=== PATIENT | female | born 1985 | race Caucasian/White ===

== ENCOUNTER 2017-05-15 06:05 | Inpatient (IN) | payer OTHER ==
[~2017-05-15] VITALS: Ht 162.6 cm; Wt 92.4 kg
[2017-05-15 06:49] VITALS: BP 132/88; PULSE 84; RESP 18
[2017-05-15 06:53] VITALS: Ht 162.6 cm; Wt 92.4 kg
[2017-05-15] MEDS ORDERED: LACTATED RINGER'S 1,000 ML IV PRN (07:00)
[2017-05-15] MEDS ORDERED: LIDOCAINE 1% (MPF) 30 ML INJ INJ PRN (07:00)
[2017-05-15] MEDS ORDERED: AMPICILLIN 2 GM/NS (PMX) 100 ML IV ONE (07:00)
[2017-05-15] MEDS ORDERED: BUTORPHANOL 2 MG INJ IV PRN (07:00)
[2017-05-15] MEDS ORDERED: MISOPROSTOL 200 MCG TAB PR PRN ×2 (07:00→10:00)
[2017-05-15] MEDS ORDERED: CARBOPROST 250 MCG INJ IM PRN ×2 (07:00→10:00)
[2017-05-15] MEDS ORDERED: OXYTOCIN 30 UNITS/LR 500 ML IV PRN ×2 (07:00→10:00)
[2017-05-15] MEDS ORDERED: OXYTOCIN 30 UNITS/LR 500 ML IV SCH ×2 (07:00)
[2017-05-15] MEDS ORDERED: METHYLERGONOVINE 0.2 MG INJ IM PRN ×2 (07:00→10:00)
[2017-05-15] MEDS ORDERED: PREN1TAB79 PO (07:04)
[2017-05-15] MEDS ORDERED: FERR325T5 PO (07:04)
[2017-05-15] MEDS ORDERED: AMPICILLIN 2 GM/NS (PMX) 100 ML ONE (07:11)
[2017-05-15] MEDS: LACTATED RINGER'S 1,000 ML IV SCH ×3 (07:20→18:51)
--- NOTE | 2017-05-15 07:29 | TRIAGE ---
OB Triage Datetime Report Generated by CPN: 05/15/2017 07:29 Datetime: 05/15/2017 06:56 Heart Rate Comments: DIFFICULT TO KEEP PT ON MONITOR, PT MOVING IN BED IN PAIN _ D/T PT'S SIZE Datetime: 05/15/2017 06:51 Stage of : Labor Datetime: 05/15/2017 06:30 Vaginal Exam Dilatation (cms): 6.0 Effacement (%): 90 Station: -2 Exam By: DWIGHT RN Membrane Status: Intact Vaginal Bleeding: Normal Show Cervix, Consistency: Soft Cervix, Position: Midposition Presentation 'A': Cephalic Datetime: 05/15/2017 06:29 EGA: 39.0 Datetime: 05/15/2017 06:27 Labor Evaluation Monitor Mode: Palpation Resting Tone [place]: Relaxed Datetime: 05/15/2017 06:23 Stage of : OB Triage Assessment Type: Triage Maternal Assessment Level of Consciousness: Fully Conscious DTR's/Clonus: DTRs 2+; No Clonus Headache: Denies Blurred Vision: No Respiratory Effort: Unlabored; Regular Rhythm; Equal Expansion Breath Sounds, Left: Clear and Equal Breath Sounds, Right: Clear and Equal Nausea/Vomiting: Denies RUQ Epigastric Pain: Denies Lower Extremities Edema: None Degree: None Upper Extremities Edema: None Degree: None Facial Edema: None Temperature Route: Oral Fall Risk Assessment History of Falling: (0) No Secondary Diagnosis: (0) No Ambulatory Aid: (0) Bedrest/Nurse Assist IV Therapy: (0) No Gait: (0) Normal/Bedrest/Immobile Mental Status: (0) Oriented to Own Ability Fall Score: 0 Fall Risk Score Definition: No Risk: No action required Comment: SEE TRIAGE SUMMARY PT ASYMPTOMATIC NO EPIGASTRIC PAIN, BLURRY VISION, SEEING SPOTS OR DICKEY Pain Assessment Pain Scale: 4 Pain Presence: Intermittent Pain Type: Cramping Pain Location: Back Pain Goal: 8 Pain Relief Measures: Comfort Measures Datetime: 05/15/2017 06:15 Time of Arrival: 05/15/2017 06:15 Arrived By: Ambulatory Arrived From: Home Chief Complaint: 39.0 WKS C/O UC'S SINCE 05/14/17 AT 2300 W/ SCANT [place] VAGINAL BLEEDING. PT STATES SHE HAS BEEN GOING TO NST 2X/WK FOR ELEVATED BP'S DURING . Movement: Present Contractions: Regular Time Contractions Began: 05/14/2017 23:00 Contractions: 5-6 Rupture of Membranes: Denies Vaginal Bleeding: Scant Vaginal Discharge: Present Recent Sexual Intercouse: Yes Abdominal Trauma: Not Applicable Patient Complaints: Contractions; Cramping; Back Pain; Nausea; Other Time Provider Notified: 05/15/2017 06:36 Provider Notified: VARUN Initial Plan: EFDaniel, ALICIA ALVARADO
[2017-05-15 07:38] LABS: ADD UMIC YES; UR ASCORBIC ACID NEGATIVE (NEGATIVE); UR BILIRUBIN (Dip) NEGATIVE (NEGATIVE); UR BLOOD (Dip) 1+ mg/dL (NEGATIVE); UR BUDDING YEAST FEW /HPF (NONE SEEN); UR CLARITY CLOUDY (CLEAR); UR COLOR YELLOW (YELLOW); UR GLUCOSE (Dip) NEGATIVE (NEGATIVE); UR KETONES (Dip) 1+ mg/dL (NEGATIVE); UR LEUKOCYTE ESTERASE (Dip) 2+ Leu/ul (NEGATIVE); UR MUCUS MANY /HPF (NONE SEEN); UR NITRITE (Dip) NEGATIVE (NEGATIVE); UR RBC 27 /HPF (0-5); UR SQUAMOUS EPITHELIAL CELL FEW /HPF (FEW); UR TOTAL PROTEIN (Dip) 1+ mg/dl (NEGATIVE); UR UROBILINOGEN (Dip) NEGATIVE (NEGATIVE)
[2017-05-15 07:39] LABS: BASOPHILS % 0.1 % (0.0-2.0); EOSINOPHILS % 0.2 % (0.0-7.0); HEMATOCRIT 34.9 % (37.0-47.0); HEMOGLOBIN 12.5 g/dl (12.0-16.0); LYMPHOCYTES # 1.1 10^3/ul (0.8-2.9); LYMPHOCYTES % 7.2 % (15.0-51.0); MEAN CORPUSCULAR HEMOGLOBIN 32.6 pg (29.0-33.0); MEAN CORPUSCULAR HGB CONC 35.8 g/dl (32.0-37.0); MEAN CORPUSCULAR VOLUME 91.1 fl (82.0-101.0); MEAN PLATELET VOLUME 12.5 fl (7.4-10.4); MONOCYTE # 0.7 10^3/ul (0.3-0.9); MONOCYTES % 4.7 % (0.0-11.0); NEUTROPHIL # 13.4 10^3/ul (1.6-7.5); PLATELET COUNT 184 10^3/UL (140-415); RED BLOOD COUNT 3.83 10^6/ul (4.20-5.40); RED CELL DISTRIBUTION WIDTH 12.4 % (11.5-14.5); WHITE BLOOD COUNT 15.4 10^3/ul (4.8-10.8)
[2017-05-15 07:56] LABS: INR 0.94; PROTIME 12.6 Sec (12.2-14.2)
[2017-05-15 07:57] LABS: PARTIAL THROMBOPLASTIN TIME 28.4 Sec (25.0-35.0)
[2017-05-15 07:59] LABS: ALBUMIN 3.5 g/dl (3.3-4.9); ALBUMIN/GLOBULIN RATIO 0.94; BILIRUBIN,INDIRECT 0.4 mg/dl (0-1.1); BILIRUBIN,TOTAL 0.4 mg/dl (0.2-1.3); CALCIUM 9.2 mg/dl (8.4-10.2); CREATININE 0.59 mg/dl (0.44-1.00); POTASSIUM 3.5 mmol/L (3.5-5.1); TOTAL PROTEIN 7.2 g/dl (6.1-8.1); URIC ACID 4.7 mg/dl (3.1-7.9)
--- NOTE | 2017-05-15 09:56 | LDN ---
Date/Time of Note Date/Time of Note DATE: 05/15/17 TIME: 09:50 Delivery Summary May 15, 2017 This patient is a 32 years old primigravida at 39 weeks and 1 day with estimated date of confinement of 05/22/2017 was admitted with a slight elevation of blood pressure with rupture membrane 6 cm of dilatation at about 5: 00 in this morning she advanced to complete dilatation and delivered spontaneously a male with score of 9 1 minute 9 in 5 minutes the weight of the baby was 7 pounds and 1 ounces estimated blood loss was 250 cc 2 small sulcus tear was repaired with 3-0 chromic catgut Weeks of Gestation 39 weeks and 1 day Placenta Delivered: Spontaneously Meconium: none Episiotomy: No Laceration repair: Small sulcus tear repaired Anesthesia type: Local Estimated blood loss: 250 Sponge & Needle done & correct: Yes All needle counts correct: Yes Any foreign bodies felt in the: No Problems: Infant Delivery Information Sex Infant Sex: male Apgars 1 Minute: 9 5 Minute: 9 Suctioning Nose & mouth suctioned at prashanth: Yes Delee suction performed: No Umbilical Cord Umbilical cord with: 3 Vessels Cord Blood was obtained: Yes Mother & Baby Disposition Disposition Laboratory Tests Test 05/15/17 06:20 05/15/17 06:55 Urine Color YELLOW Urine Clarity CLOUDY Urine pH 7.0 Urine Specific [place] 1.020 Urine Ketones 1+mg/dL Urine Nitrite NEGATIVEmg/dL Urine Bilirubin NEGATIVEmg/dL Urine Urobilinogen NEGATIVEmg/dL Urine Leukocyte Esterase 2+Clay/ul Urine Microscopic RBC 27/HPF Urine Microscopic WBC 105/HPF Urine Squamous Epithelial Cells FEW/HPF Urine Calcium Oxalate Crystals MODERATE/HPF Urine Mucus MANY/HPF Urine Yeast (Budding) FEW/HPF Urine Hemoglobin 1+mg/dL Urine Glucose NEGATIVEmg/dL Urine Total Protein 1+mg/dl White Blood Count 15.410^3/ul Red Blood Count 3.8310^6/ul Hemoglobin 12.5g/dl Hematocrit 34.9% Mean Corpuscular Volume 91.1fl Mean Corpuscular Hemoglobin 32.6pg Mean Corpuscular Hemoglobin Concent 35.8g/dl Red Cell Distribution Width 12.4% Platelet Count 00449^3/UL Mean Platelet Volume 12.5fl Neutrophils % 87.0% Lymphocytes % 7.2% Monocytes % 4.7% Eosinophils % 0.2% Basophils % 0.1% Nucleated Red Blood Cells % 0.0/100WBC Neutrophils # 13.410^3/ul Lymphocytes # 1.110^3/ul Monocytes # 0.710^3/ul Eosinophils # 0.010^3/ul Basophils # 0.010^3/ul Nucleated Red Blood Cells # 0.010^3/ul Prothrombin Time 12.6Sec Prothrombin Time Ratio 1.0 INR International Normalized Ratio 0.94 Activated Partial Thromboplast Time 28.4Sec Fibrinogen 655.0mg/dl Sodium Level 138mmol/L Potassium Level 3.5mmol/L Chloride Level 105mmol/L Carbon Dioxide Level 18mmol/L Anion Gap 19 Blood Urea Nitrogen 8mg/dl Creatinine 0.59mg/dl Glucose Level 103mg/dl Uric Acid 4.7mg/dl Calcium Level 9.2mg/dl Total Bilirubin 0.4mg/dl Direct Bilirubin 0.00mg/dl Indirect Bilirubin 0.4mg/dl Aspartate Amino Transf (AST/SGOT) 21IU/L Alanine Aminotransferase (ALT/SGPT) 42IU/L Alkaline Phosphatase 177IU/L Total Protein 7.2g/dl Albumin 3.5g/dl Globulin 3.70g/dl Albumin/Globulin Ratio 0.94 Hepatitis B Surface Antigen NEGATIVE Current Medications Medications (Trade) Dose Ordered Sig/Mahnaz Route PRN Reason Start Time Stop Time Status Last Admin Dose Admin Lactated Ringer's 1,000 ml @ 125 mls/hr Q8H IV 05/15/17 06:56 05/15/17 07:20 Ampicillin 100 ml @ 100 mls/hr ONCE ONCE IV 05/15/17 07:00 05/15/17 07:59 DC 05/15/17 07:20 Ampicillin (Ampicillin 1 Gm/ NS (Pmx)) 50 ml @ 100 mls/hr Q4H IV 05/15/17 11:00 Butorphanol Tartrate (Stadol) 2 mg Q2H PRN IV PAIN 05/15/17 07:00 Lidocaine 30 ml 30 ml ONCE PRN INJ EPISIOTOMY/TEARING 05/15/17 07:00 05/15/17 09:23 Oxytocin/Lactated Ringer's 500 ml @ 125 mls/hr ONCE -MAY REPEAT X1 IV 05/15/17 07:00 05/15/17 09:36 Oxytocin/Lactated Ringer's 500 ml @ 125 mls/hr ONCE IV 05/15/17 07:00 Ibuprofen 600 mg 600 mg ONCE PRN PO Mild Pain (Pain Score 1-3) 05/15/17 07:00 Lactated Ringer's 1,000 ml @ 2,000 mls/hr Q30M PRN IV PRE-EPIDURAL BOLUS 05/15/17 07:00 Oxytocin/Lactated Ringer's 500 ml @ 0 mls/hr ONCE PRN IV For Hemorrhage Management 05/15/17 07:00 05/15/17 09:24 Methylergonovine Maleate (Methergine) 0.2 mg ONCE PRN IM VAGINAL BLEEDING 05/15/17 07:00 Carboprost Tromethamine (Hemabate) 250 mcg ONCE PRN IM VAGINAL BLEEDING 05/15/17 07:00 Misoprostol 1000 mcg 1,000 mcg ONCE PRN UT VAGINAL BLEEDING 05/15/17 07:00 Ampicillin (Ampicillin 2 Gm/ NS (Pmx)) 100 ml @ ud [facility]K-MED ONCE .ROUTE 05/15/17 07:11 05/15/17 07:12 DC Mom & Baby to Maternity; Good: Yes Mom transferred to: Med/Surg Baby to NICU: No LA HERRERA MD May 15, 2017 09:56
[2017-05-15] MEDS ORDERED: OXYCODONE/ASPIRIN (4.88/325) TAB PO PRN ×2 (10:00)
[2017-05-15] MEDS ORDERED: SENNA/DOCUSATE NA (8.6MG/50MG) TAB PO PRN (10:00)
[2017-05-15] MEDS ORDERED: IBUPROFEN 600 MG TAB PO PRN (10:00)
[2017-05-15] MEDS ORDERED: LANOLIN 7 GM TUBE TOP PRN (10:00)
[2017-05-15] MEDS ORDERED: DIBUCAINE 1% 30 GM OINT PR PRN (10:00)
[2017-05-15] MEDS ORDERED: BENZOCAINE 20% 56 ML SPRAY TOP PRN (10:00)
[2017-05-15] MEDS ORDERED: ACETAMINOPHEN 500 MG TAB PO PRN (10:00)
[2017-05-15] MEDS ORDERED: WITCH HAZEL/GLYCERIN PAD PR PRN (10:00)
--- NOTE | 2017-05-15 10:13 | HP ---
Date/Time of Note Date/Time of Note DATE: 05/15/17 TIME: 10:05 OB - History Hx of Present Free Text/Dictation May 15 2007 OB H& P This patient is a 32 years old primigravida with estimated date of confinement of 05/22/2017 which makes her 39 weeks and 1 day she had some elevated blood pressure upon admission with early this morning in active labor was 6 cm dilatation and advanced to complete dilatation : 1 Para: 0 Care: Good Care Obstetrical Complications: None Medical Complications: Other (Slight elevated blood pressure) Past Family/Social History * Past Medical, Surgical, Family and Obstetric Histories reviewed from chart. OB Admission Exam Vital Signs Vital Signs Vital Signs Date Time Temp Pulse Resp B/P Pulse Ox O2 Delivery O2 Flow Rate FiO2 05/15/17 06:49 97.9 84 18 132/88 Room Air Physical Exam HEENT: WNL Heart: Rhythm Normal Lungs: Clear Abdomen: WNL Extremities: Normal Reflexes: Normal Cervical Dilatation: 6cm Effacement: 75% Station: 0 Membranes: Intact Amniotic Fluid: Clear Heart Rate: 140's Accelerations: Accelerations Present Decelerations: No Decelerations Varibility: Moderate Contractions on Admission: 6-10 Minutes Apart Intensity: Mild Last 72 hours Lab Results CBC & BMP 05/15/17 06:55 Liver Function Test 05/15/17 06:55 Alanine Aminotransferase (ALT/SGPT) 42 Albumin 3.5 Alkaline Phosphatase 177 H Aspartate Amino Transf (AST/SGOT) 21 Direct Bilirubin 0.00 Total Protein 7.2 OB Assessment/Plan Other Assessment: Laboratory Tests Test 05/15/17 06:20 05/15/17 06:55 Urine Color YELLOW Urine Clarity CLOUDY Urine pH 7.0 Urine Specific [place] 1.020 Urine Ketones 1+mg/dL Urine Nitrite NEGATIVEmg/dL Urine Bilirubin NEGATIVEmg/dL Urine Urobilinogen NEGATIVEmg/dL Urine Leukocyte Esterase 2+Clay/ul Urine Microscopic RBC 27/HPF Urine Microscopic WBC 105/HPF Urine Squamous Epithelial Cells FEW/HPF Urine Calcium Oxalate Crystals MODERATE/HPF Urine Mucus MANY/HPF Urine Yeast (Budding) FEW/HPF Urine Hemoglobin 1+mg/dL Urine Glucose NEGATIVEmg/dL Urine Total Protein 1+mg/dl White Blood Count 15.410^3/ul Red Blood Count 3.8310^6/ul Hemoglobin 12.5g/dl Hematocrit 34.9% Mean Corpuscular Volume 91.1fl Mean Corpuscular Hemoglobin 32.6pg Mean Corpuscular Hemoglobin Concent 35.8g/dl Red Cell Distribution Width 12.4% Platelet Count 44557^3/UL Mean Platelet Volume 12.5fl Neutrophils % 87.0% Lymphocytes % 7.2% Monocytes % 4.7% Eosinophils % 0.2% Basophils % 0.1% Nucleated Red Blood Cells % 0.0/100WBC Neutrophils # 13.410^3/ul Lymphocytes # 1.110^3/ul Monocytes # 0.710^3/ul Eosinophils # 0.010^3/ul Basophils # 0.010^3/ul Nucleated Red Blood Cells # 0.010^3/ul Prothrombin Time 12.6Sec Prothrombin Time Ratio 1.0 INR International Normalized Ratio 0.94 Activated Partial Thromboplast Time 28.4Sec Fibrinogen 655.0mg/dl Sodium Level 138mmol/L Potassium Level 3.5mmol/L Chloride Level 105mmol/L Carbon Dioxide Level 18mmol/L Anion Gap 19 Blood Urea Nitrogen 8mg/dl Creatinine 0.59mg/dl Glucose Level 103mg/dl Uric Acid 4.7mg/dl Calcium Level 9.2mg/dl Total Bilirubin 0.4mg/dl Direct Bilirubin 0.00mg/dl Indirect Bilirubin 0.4mg/dl Aspartate Amino Transf (AST/SGOT) 21IU/L Alanine Aminotransferase (ALT/SGPT) 42IU/L Alkaline Phosphatase 177IU/L Total Protein 7.2g/dl Albumin 3.5g/dl Globulin 3.70g/dl Albumin/Globulin Ratio 0.94 Hepatitis B Surface Antigen NEGATIVE Current Medications Medications (Trade) Dose Ordered Sig/Mahnaz Route PRN Reason Start Time Stop Time Status Last Admin Dose Admin Lactated Ringer's 1,000 ml @ 125 mls/hr Q8H IV 05/15/17 06:56 05/15/17 07:20 Ampicillin 100 ml @ 100 mls/hr ONCE ONCE IV 05/15/17 07:00 05/15/17 07:59 DC 05/15/17 07:20 Ampicillin (Ampicillin 1 Gm/ NS (Pmx)) 50 ml @ 100 mls/hr Q4H IV 05/15/17 11:00 Butorphanol Tartrate (Stadol) 2 mg Q2H PRN IV PAIN 05/15/17 07:00 Lidocaine 30 ml 30 ml ONCE PRN INJ EPISIOTOMY/TEARING 05/15/17 07:00 05/15/17 09:23 Oxytocin/Lactated Ringer's 500 ml @ 125 mls/hr ONCE -MAY REPEAT X1 IV 05/15/17 07:00 05/15/17 09:36 Oxytocin/Lactated Ringer's 500 ml @ 125 mls/hr ONCE IV 05/15/17 07:00 Ibuprofen 600 mg 600 mg ONCE PRN PO Mild Pain (Pain Score 1-3) 05/15/17 07:00 Lactated Ringer's 1,000 ml @ 2,000 mls/hr Q30M PRN IV PRE-EPIDURAL BOLUS 05/15/17 07:00 Oxytocin/Lactated Ringer's 500 ml @ 0 mls/hr ONCE PRN IV For Hemorrhage Management 05/15/17 07:00 05/15/17 09:24 Methylergonovine Maleate (Methergine) 0.2 mg ONCE PRN IM VAGINAL BLEEDING 05/15/17 07:00 Carboprost Tromethamine (Hemabate) 250 mcg ONCE PRN IM VAGINAL BLEEDING 05/15/17 07:00 Misoprostol 1000 mcg 1,000 mcg ONCE PRN NE VAGINAL BLEEDING 05/15/17 07:00 Ampicillin (Ampicillin 2 Gm/ NS (Pmx)) 100 ml @ [facility] ONCE .ROUTE 05/15/17 07:11 05/15/17 07:12 DC Oxycodone/Aspirin (Percodan) 1 tab Q3H PRN PO PAIN LEVEL 1-5 05/15/17 10:00 UNV Oxycodone/Aspirin (Percodan) 2 tab Q3H PRN PO PAIN LEVEL 6-10 05/15/17 10:00 UNV Senna/Docusate Sodium (Senokot-S) 1 tab BID PRN PO CONSTIPATION 05/15/17 10:00 UNV Witch Becky/ Glycerin (Tucks Pads) 1 pad BEDSIDE MEDICATION PRN NE HEMORRHOID/EPISIOTMY PAIN 05/15/17 10:00 UNV Benzocaine (Dermoplast [place]) 1 spray BEDSIDE MEDICATION PRN TOP HEMORRHOID/EPISIOTMY PAIN 05/15/17 10:00 UNV Dibucaine (Nupercainal) 1 applic BEDSIDE MEDICATION PRN NE HEMORRHOID/EPISIOTMY PAIN 05/15/17 10:00 UNV Lanolin ([id number]) 1 applic BEDSIDE MEDICATION PRN TOP BEDSIDE FOR INDRA TO NIPPLES 05/15/17 10:00 UNV Diphtheria/ Tetanus/Acell Pertussis 0.5 ml 0.5 ml ONCE ONCE IM* 05/17/17 09:00 05/17/17 09:01 UNV Oxytocin/Lactated Ringer's 500 ml @ 0 mls/hr ONCE PRN IV For Hemorrhage Management 05/15/17 10:00 UNV Methylergonovine Maleate (Methergine) 0.2 mg ONCE PRN IM VAGINAL BLEEDING 05/15/17 10:00 UNV Carboprost Tromethamine (Hemabate) 250 mcg ONCE PRN IM VAGINAL BLEEDING 05/15/17 10:00 UNV Misoprostol 1000 mcg 1,000 mcg ONCE PRN NE VAGINAL BLEEDING 05/15/17 10:00 UNV Oxytocin/Lactated Ringer's 500 ml @ 125 mls/hr Q4H IV 05/15/17 09:56 UNV Ibuprofen (Motrin) 600 mg Q6H PRN PO PAIN 05/15/17 10:00 UNV Acetaminophen (Tylenol Tab) 500 mg Q6H PRN PO PAIN AND OR ELEVATED TEMP 05/15/17 10:00 UNV LA HERRERA MD May 15, 2017 10:13
[2017-05-15] MEDS: IBUPROFEN 600 MG TAB PO PRN (10:56)
[2017-05-15] MEDS ORDERED: AMPICILLIN 1 GM/NS (PMX) 50 ML IV SCH (11:00)
[2017-05-15 11:40] VITALS: BP 115/70; PULSE 70; RESP 18
[2017-05-15] MEDS: OXYTOCIN 30 UNITS/LR 500 ML IV SCH ×4 (13:56→21:56)
[2017-05-15 16:00] VITALS: BP 100/61; PULSE 72; RESP 19
[2017-05-15 19:30] VITALS: BP 110/59; PULSE 94; RESP 18
[2017-05-15] MEDS ORDERED: INFLUENZA VIRUS VACCINE 0.5 ML (DISPENSING) IM* ONE (20:30)
[2017-05-16 00:20] VITALS: BP 110/57; PULSE 94; RESP 19
[2017-05-16] MEDS: OXYTOCIN 30 UNITS/LR 500 ML IV SCH (01:56)
[2017-05-16 04:15] VITALS: BP 106/59; PULSE 80; RESP 18
[2017-05-16] MEDS: IBUPROFEN 600 MG TAB PO PRN ×2 (05:49→13:15)
[2017-05-16 06:39] LABS: BASOPHILS % 0.3 % (0.0-2.0); EOSINOPHILS # 0.1 10^3/ul (0.0-0.5); EOSINOPHILS % 0.5 % (0.0-7.0); HEMATOCRIT 30.3 % (37.0-47.0); HEMOGLOBIN 10.5 g/dl (12.0-16.0); LYMPHOCYTES # 1.8 10^3/ul (0.8-2.9); LYMPHOCYTES % 13.7 % (15.0-51.0); MEAN CORPUSCULAR HEMOGLOBIN 32.3 pg (29.0-33.0); MEAN CORPUSCULAR HGB CONC 34.7 g/dl (32.0-37.0); MEAN CORPUSCULAR VOLUME 93.2 fl (82.0-101.0); MEAN PLATELET VOLUME 12.5 fl (7.4-10.4); MONOCYTE # 0.8 10^3/ul (0.3-0.9); NEUTROPHIL # 10.3 10^3/ul (1.6-7.5); NEUTROPHILS % 78.7 % (39.0-77.0); PLATELET COUNT 149 10^3/UL (140-415); RED BLOOD COUNT 3.25 10^6/ul (4.20-5.40); RED CELL DISTRIBUTION WIDTH 12.7 % (11.5-14.5)
[2017-05-16] MEDS ORDERED: INFLUENZA VIRUS VACCINE 0.5 ML (DISPENSING) IM* ONE (09:00)
[2017-05-16 09:01] VITALS: BP 110/61; PULSE 69; RESP 19
--- NOTE | 2017-05-16 09:04 | QN ---
Documentation Comment PPD#! is stable afebrile tolerates diet No VB +BM +Voids VS stable Gen NAD Abd soft,NT ND Genitalia No blood at perinium --->discharge plan tomorrow FRANCISCO COWART M.D. May 16, 2017 09:04
[2017-05-16 15:36] VITALS: BP 92/43; PULSE 69; RESP 14
[2017-05-16 20:00] VITALS: BP 90/55; PULSE 67; RESP 21
[2017-05-17] MEDS: IBUPROFEN 600 MG TAB PO PRN (00:13)
[2017-05-17 04:00] VITALS: BP 107/57; PULSE 80; RESP 21
[2017-05-17 07:40] VITALS: BP 98/51; PULSE 64; RESP 16
[2017-05-17] MEDS ORDERED: DIPHTH/TET/ACEL PERTUSS (ADULT) 0.5 ML VIAL IM* ONE (09:00)
--- NOTE | 2017-05-17 11:37 | DS ---
Date/Time of Note Date/Time of Note DATE: 05/17/17 TIME: 11:36 Obstetrical Discharge Record Final Diagnosis Final Diagnosis: Term delivered Vaginal Delivery Obstetrical Delivery: Spontaneous Complications Preg induced Hypertension Condition on Discharge Physical Assessment Voiding: Yes Breast: Soft, non-tender, Filling Fundus: Firm Calf Tenderness: No Patient Condition: Good CAROL AGRAWAL May 17, 2017 11:37
== END 2017-05-17 15:40 | disposition home or self-care (01) | DRG 775 ==
LOC: OBT 06:05 → L-D 06:10 → OBT 07:13 → PP1 11:32
PROVIDERS: ADMIT Specialist; ATTEND Specialist
PROC: 10E0XZZ Delivery of Products of Conception, External Approach (ICD-10-PCS; principal; 2017-05-15)
DX: O80 Encounter for full-term uncomplicated delivery (principal); Z37.0 Single live birth; Z3A.39 39 weeks gestation of pregnancy
CPT/HCPCS: 80053; 81001; 84560; 85025; 85384; 85610; 85730; 86592; 86900; 86901; 87340; 90686; 90715; G0463; J0290; J2590; J7120

== ENCOUNTER 2019-03-31 12:41 | Outpatient (CLI) | payer MEDICAID, OTHER ==
[~2019-03-31] VITALS: Ht 165.1 cm; Wt 99.5 kg
[~2019-03-31 12:41] MED LIST: FERR325T5 PO; PREN1TAB79 PO
[2019-03-31 13:11] VITALS: Ht 165.1 cm; Wt 99.5 kg
[2019-03-31 13:12] VITALS: BP 121/76; PULSE 89; RESP 18
== END 2019-03-31 14:42 | disposition home or self-care (01) ==
LOC: OBT 12:41 → L-D 12:41 → OBT 14:42
PROVIDERS: ATTEND Specialist
DX: O36.8130 Decreased fetal movements, third trimester, not applicable or unspecified (principal); Z3A.35 35 weeks gestation of pregnancy
CPT/HCPCS: 76818; Z7500; G0463